=== PATIENT | male | born 1945 | race Caucasian/White ===

== ENCOUNTER 2017-04-11 10:14 | Day surgery (SDC) | payer MEDICARE ==
[~2017-04-11 10:14] MED LIST: BACTRIM DS 8001 TAB PO; KEFLEX 500MG.500 MG PO; LORTAB 5/500 501 TAB PO; NEXIUM40 MG PO; ZOLOFT100 MG PO
--- NOTE | 2017-04-11 11:57 | Operative Note ---
Surgeon/Diagnoses Surgeon/Research Program Coordinator(s) Date of procedure: 04/11/17 Surgeon: MD Dana Shin Diagnoses Pre-op diagnosis: History of colon polyps (tubulovillous adenoma colon) Diverticulosis Tortuous colon Post-op diagnosis Same as preoperative diagnoses, with the addition of the following: Colon polyps Hemorrhoidal cushions Procedure Procedure Procedure: Colonoscopy with polypectomy by means other than snare (biopsy) Indications: ALEXEY JAY is a 71 year-old Male with a history of complex tubulovillous adenoma of the cecum noted in January 2015. Repeat colonoscopy in October 2015 revealed some small polyps, but no sign of significant/persistent disease at the site of tubulovillous adenoma excision. He returns to continue relatively short- term surveillance. Findings: Bowel preparation fair to moderate Fairly severe colonic spasticity and lack of relaxation Moderately tortuous colon Mild nodularity along the lateral margin of the prostate Mild scattered diverticulosis Hemorrhoidal cushions with no bleeding or thrombosis 9 mm sessile polyp at 45 cm Focal inflammation at 10 cm Procedure Description: After informed consent was obtained, the patient was taken to the endoscopy suite. IV sedation ensued after he was transferred to the LEFT lateral decubitus position. Digital rectal exam revealed some mild bilateral nodularity of the prostate. Inspection and palpation also revealed some hemorrhoidal cushions. No thrombosis were bleeding was seen. The colonoscope was placed is addition. The entire colon was evaluated. Bowel preparation was fair to moderate with large volume irrigation and suctioning used to somewhat improved visualization. Fairly mild and essentially unchanged diverticular disease was confirmed. A 9 mm sessile polyp at 45 cm was excised with cold biopsy forceps. An area of focal inflammation at 10 cm was biopsied. No additional lesions were seen. The colonoscope was carefully removed and the patient was transferred to recovery. EBL (ml): 1 Anesthesia: IV sedation with 9 mg of Versed and 200 g of fentanyl Complications: No immediate Specimens: 9 mm sessile polyp at 45 cm Biopsy of focal inflammation at 10 cm Disposition Disposition: Stable to recovery from where he will be discharged home. He will follow up in one week. Repeat colonoscopy is pending pathology but will likely be between 2-3 years secondary to history of limited visualization and significant polyps. at 1155
[2017-04-11 12:42] VITALS: BP 117/72
== END 2017-04-11 12:55 | disposition home or self-care (01) ==
LOC: SDC 10:14
PROVIDERS: Surgery
PROC: 0DBE8ZX Excision of Large Intestine, Via Natural or Artificial Opening Endoscopic, Diagnostic (ICD-10-PCS; principal; 2017-04-11 11:00)
DX: Z09 Encounter for follow-up examination after completed treatment for conditions other than malignant neoplasm (principal); Z86.010 Personal history of colon polyps; K57.90 Diverticulosis of intestine, part unspecified, without perforation or abscess without bleeding; K64.9 Unspecified hemorrhoids; K63.5 Polyp of colon